=== PATIENT | male | born 2000 | race African-American/Black ===

== ENCOUNTER 2018-12-30 22:35 | Emergency (ER) | payer OTHER ==
[2018-12-30 22:42] VITALS: TEMP 98.6
--- NOTE | 2018-12-30 23:21 | XR ---
EXAM: XR Right Foot Complete, 3 or More Views CLINICAL HISTORY: Pain TECHNIQUE: Frontal, lateral and oblique views of the right foot. COMPARISON: No relevant prior studies available. FINDINGS: Bones/joints: Indeterminate tiny linear calcific density along the dorsal aspect of the talar neck. A fracture fragment is not excluded. Soft tissues: Unremarkable. No radiopaque foreign body. IMPRESSION: Indeterminate tiny linear calcific density along the dorsal aspect of the talar neck. A fracture fragment is not excluded. Consider correlation with point tenderness.
--- NOTE | 2018-12-30 23:23 | XR ---
EXAM: XR Right Ankle Complete, 3 or More Views CLINICAL HISTORY: Pain TECHNIQUE: Frontal, lateral and oblique views of the right ankle. COMPARISON: No relevant prior studies available. FINDINGS: Bones/joints: No acute fracture or malalignment. Soft tissues: Unremarkable. IMPRESSION: No acute fracture or malalignment.
--- NOTE | 2018-12-31 00:14 | ED ---
General Adult HPI - General Chief complaint: Extremity Injury, Lower Stated complaint: Rt Ankle Injury Time Seen by Provider: 12/30/18 22:52 Source: patient, family, RN notes reviewed Mode of arrival: ambulatory Limitations: no limitations - History of Present Illness Initial comments: 18-year-old male presents to the emergency department for a chief component of right ankle pain 7 hours. Patient states he was putting basketball when he landed on his right ankle and inverted it. Patient states the pain is over the forefoot and to the lateral aspect of the right ankle. Patient states he cannot ambulate on this or bear weight. States it is very painful to bend his ankle. He denies hitting his head or any other injuries.Patient has no other complaints at this time including shortness of breath, chest pain, abdominal pain, nausea or vomiting, headache, or visual changes. - Related Data Home Medications Medication Instructions Recorded Confirmed No Known Home Medications 06/07/15 12/30/18 Allergies Allergy/AdvReac Type Severity Reaction Status Date / Time No Known Allergies Allergy Verified 12/30/18 22:45 Review of Systems ROS Statement: Those systems with pertinent positive or pertinent negative responses have been documented in the HPI. ROS Other: All systems not noted in ROS Statement are negative. Past Medical History Past Medical History: No Reported History History of Any Multi-Drug Resistant Organisms: None Reported Past Surgical History: No Surgical Hx Reported Past Psychological History: No Psychological Hx Reported Smoking Status: Current every day smoker Past Alcohol Use History: None Reported Past Drug Use History: None Reported General Exam Limitations: no limitations General appearance: alert, in no apparent distress Head exam: Present: atraumatic, normocephalic, normal inspection Eye exam: Present: normal appearance, PERRL, EOMI. Absent: scleral icterus, con junctival injection, periorbital swelling ENT exam: Present: normal exam, mucous membranes moist Neck exam: Present: normal inspection, full ROM. Absent: tenderness, meningismus, lymphadenopathy Respiratory exam: Present: normal lung sounds bilaterally. Absent: respiratory distress, wheezes, rales, rhonchi, stridor Cardiovascular Exam: Present: regular rate, normal rhythm, normal heart sounds. Absent: systolic murmur, diastolic murmur, rubs, gallop, clicks Extremities exam: Present: tenderness (Significant tenderness noted over the navicular of the right foot), normal capillary refill (Capillary refill less than 2 seconds, to be pulse 2+ in the right lower extremity), other (Sensation intact in the right lower extremity, no significant edema or erythema.). Absent: full ROM (Patient is able to flex and extend her ankle but does have some pain with doing so), pedal edema, joint swelling, calf tenderness Neurological exam: Present: alert, oriented X3, CN II-XII intact Psychiatric exam: Present: normal affect, normal mood Course Vital Signs 12/30/18 12/31/18 22:39 00:17 Temperature 98.6 F Pulse Rate 99 92 Respiratory 18 16 Rate Blood Pressure 121/67 120/71 O2 Sat by Pulse 100 96 Oximetry Procedures - Orthopedic Splinting/Casting Injury #1 Side: right Lower Extremity Injury Location: short leg Lower Extremity Immobilizer: posterior splint, stirrup splint Other Orthopedic Equipment: crutches Additional Comments: NV status intact after splint applied Medical Decision Making - Medical Decision Making 18-year-old male presents to the emergency department for chief clinic of right ankle pain. Patient fell onto the right ankle while playing basketball and inverted it. On exam neurovascular status is intact. Patient does have pinpoint tenderness over the navicular. Unable to bear weight. X-ray of the ankle and foot are negative. However given patient's point tenderness and inability to bear weight he was splinted in a posterior and stirrup splint. Given crutches. Discussed following up with orthopedics or possible occult fracture versus soft tissue injury. Discussed returning here if he has any worsening symptoms. Discussed Rice therapy. Disposition Clinical Impression: Foot pain, right Disposition: HOME SELF-CARE Condition: Good Instructions (If sedation given, give patient instructions): R.I.C.E. Treatment (ED), Ankle Strain (ED) Additional Instructions: Please take Motrin and Tylenol for pain. Use crutches. Follow-up with orthopedics in one to 2 days. Return here if you have any worsening symptoms. Is patient prescribed a controlled substance at d/c from ED?: No Referrals: Damaris Ho MD [STAFF PHYSICIAN] - 1-2 days Fernando Tinajero DO [Doctor of Osteopathic Medicine] - 1-2 days Time of Disposition: 00:13
[2018-12-31 00:18] VITALS: BP 120/71; PULSE 92; RESP 16
== END 2018-12-31 00:22 | disposition home or self-care (01) ==
LOC: EC 22:35
DX: M79.671 Pain in right foot (principal); F17.200 Nicotine dependence, unspecified, uncomplicated
CPT/HCPCS: 29515; 99283

== ENCOUNTER 2022-05-22 09:00 | Emergency (ER) | payer OTHER ==
[2022-05-22 09:20] VITALS: RESP 18; TEMP 98
--- NOTE | 2022-05-22 09:50 | XR ---
EXAMINATION TYPE: XR finger RT DATE OF EXAM: 05/22/2022 COMPARISON: NONE HISTORY: Pain TECHNIQUE: Three views are submitted. FINDINGS: There is a fracture line through the base of the middle phalanx fourth digit extending obliquely. Art icular extension not excluded. No significant callus formation mild displacement. IMPRESSION: 1. Obliquely oriented fracture base little phalanx fourth digit. No significant callus formation.
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
[2022-05-22 10:16] VITALS: BP 124/73; PULSE 70
== END 2022-05-22 10:15 | disposition home or self-care (01) ==
LOC: EC 09:00
DX: S62.622A Displaced fracture of middle phalanx of right middle finger, initial encounter for closed fracture (principal); Y04.0XXA Assault by unarmed brawl or fight, initial encounter
CPT/HCPCS: 99284

== ENCOUNTER → 2022-11-10 | Outpatient (CLI) | payer OTHER ==
--- NOTE | 2022-11-10 11:53 | XR ---
EXAMINATION TYPE: XR shoulder limited RT DATE OF EXAM: 11/10/2022 CLINICAL HISTORY: pain TECHNIQUE: Three views of the right shoulder are obtained. COMPARISON: None FINDINGS: There is no acute fracture/dislocation evident. The acromioclavicular and glenohumeral abelino int spaces appear within normal limits. The visualized ribs are intact and unremarkable. IMPRESSION: 1. There is no acute fracture or dislocation. ICD 10 NO FRACTURE, INITIAL EVALUATION
== END | disposition home or self-care (01) ==
LOC: RADXRMAIN 10:49
PROVIDERS: ATTEND Family Medicine
DX: M25.511 Pain in right shoulder (principal)

== ENCOUNTER 2023-08-16 13:21 | Emergency (ER) | payer OTHER ==
--- NOTE | 2023-08-16 15:59 | ED ---
General Adult HPI <Forrest Booth - Last Filed: 08/16/23 15:59> - General Source: patient, RN notes reviewed <Lila Conrad - Last Filed: 08/16/23 17:33> - General Stated complaint: face laceration Time Seen by Provider: 08/16/23 15:59 - History of Present Illness Initial comments: 23-year-old male presenting to the ED with the chief complaints of head injury. Patient states that he was playing basketball. States during this an opposing player head butted him on accident while defending. There is no LOC at this time. Now notes a laceration to his forehead. No other injuries at this time. Tetanus status unknown. (Forrest Booth) Patient is a 23-year-old male presenting the emergency department with a chief complaint face laceration. Patient states he was playing basketball and an opponent turned hitting his head into the patient's. Patient denies loss of consciousness, blood thinner use, nausea vomiting, visual disturbances. Patient does report that he has a mild headache. Patient is unaware of tetanus vaccination status. Patient denies any other injuries or complaints at this time. (Lila Conrad) - Related Data Home Medications Medication Instructions Recorded Confirmed No Known Home Medications 06/07/15 12/30/18 Allergies Allergy/AdvReac Type Severity Reaction Status Date / Time No Known Allergies Allergy Verified 08/16/23 16:08 Review of Systems ROS Other: All systems not noted in ROS Statement are negative. <Forrest Booth - Last Filed: 08/16/23 15:59> ROS Other: All systems not noted in ROS Statement are negative. <Lila Conrad - Last Filed: 08/16/23 17:33> ROS Statement: Those systems with pertinent positive or pertinent negative responses have been documented in the HPI. Past Medical History Past Medical History: No Reported History History of Any Multi-Drug Resistant Organisms: None Reported Past Surgical History: No Surgical Hx Reported Past Psychological History: No Psychological Hx Reported Past Alcohol Use History: Occasional Past Drug Use History: Marijuana <Forrest Booth - Last Filed: 08/16/23 15:59> General Exam <Forrest Booth - Last Filed: 08/16/23 15:59> General appearance: alert, in no apparent distress Head exam: Present: atraumatic, normocephalic, normal inspection Eye exam: Present: normal appearance, PERRL, EOMI. Absent: scleral icterus, conjunctival injection, periorbital swelling Pupils: Present: normal accommodation Respiratory exam: Present: normal lung sounds bilaterally. Absent: respiratory distress, wheezes, rales, rhonchi, stridor Cardiovascular Exam: Present: regular rate, normal rhythm, normal heart sounds. Absent: systolic murmur, diastolic murmur, rubs, gallop, clicks Neurological exam: Present: alert, oriented X3, CN II-XII intact Psychiatric exam: Present: normal affect, normal mood Skin exam: Present: warm, dry, normal color, other (3 cm laceration to medial left eyebrow. no active bleeding ). Absent: rash <Lila Conrad - Last Filed: 08/16/23 17:33> - General Exam Comments Initial Comments: Visual Physical Exam Vital signs reviewed General: Well-appearing, nontoxic, no acute distress. Head: Laceration to patient's forehead Eyes: PERRLA, EOMI ENT: Airway patent Chest: Nonlabored breathing Skin: No visual rash, normal skin tone Neuro: Alert and oriented 3 Musculoskeletal: No gross abnormalities (Forrest Booth) Course Vital Signs 08/16/23 16:04 Temperature 97.9 F Pulse Rate 64 Respiratory 18 Rate Blood Pressure 127/77 O2 Sat by Pulse 100 Oximetry Procedures - Laceration Laceration #1 Consent Obtained: verbal consent Site: face Size (cm): 3 Description: linear Depth: simple, single layer Anesthetic Used: lidocaine 1% Anesthesia Technique: local infiltration Amount (mls): 4 Pre-repair: wound explored, irrigated extensively, deep structures intact Type of Sutures: nylon Size of Sutures: 5-0 Number of Sutures: 4 Technique: simple, interrupted Patient Tolerated Procedure: well, no complications <Lila Conrad - Last Filed: 08/16/23 17:33> Medical Decision Making <Forrest Booth - Last Filed: 08/16/23 15:59> <Lila Conrad - Last Filed: 08/16/23 17:33> - Medical Decision Making Quicknote portion performed. Signed Forrest Cabatu Forrest De Dios) Was pt. sent in by a medical professional or institution (TOBIAS Mullins, OFFLINE EDITOR, urgent care, hospital, or longterm...) When possible be specific @ -No Did you speak to anyone other than the patient for history (EMS, parent, family, police, friend...)? What history was obtained from this source @ -No Did you review nursing and triage notes (agree or disagree)? Why? @ -I reviewed and agree with nursing and triage notes Were old charts reviewed (outside hosp., previous admission, EMS record, old EKG, old radiological studies, urgent care reports/EKG's, longterm records)? Report findings @ -No old charts were reviewed Differential Diagnosis (chest pain, altered mental status, abdominal pain women, abdominal pain men, vaginal bleeding, weakness, fever, dyspnea, syncope, headache, dizziness, GI bleed, back pain, seizure, CVA, palpatations, mental health, musculoskeletal)? @ -Laceration, abrasion, contusion EKG interpreted by me (3pts min.). @ -None X-rays interpreted by me (1pt min.). @ -None done CT interpreted by me (1pt min.). @ -None done U/S interpreted by me (1pt. min.). @ -None done What testing was considered but not performed or refused? (CT, X-rays, U/S, labs)? Why? @ -CT brain was considered but not done according to [facility] CT head protocol. What meds were considered but not given or refused? Why? @ -None Did you discuss the management of the patient with other professionals (professionals i.e. TOBIAS Mullins, OFFLINE EDITOR, lab, RT, psych nurse, social worker aide, claims processor, teacher, college service officer, mattress spring encaser)? Give summary @ -No Was smoking cessation discussed for >3mins.? @ -No Was critical care preformed (if so, how long)? @ -No Were there social determinants of health that impacted care today? How? (Homelessness, low income, unemployed, alcoholism, drug addiction, transportation, low edu. Level, literacy, decrease access to med. care, residential, rehab)? @ -No Was there de-escalation of care discussed even if they declined (Discuss DNR or withdrawal of care, Hospice)? DNR status @ -No What co-morbidities impacted this encounter? (DM, HTN, Smoking, COPD, CAD, Cancer, CVA, ARF, Chemo, Hep., AIDS, mental health diagnosis, sleep apnea, morbid obesity)? @ -None Was patient admitted / discharged? Hospital course, mention meds given and route, prescriptions, significant lab abnormalities, going to OR and other pertinent info. @ -Discharge. Patient is a 23-year-old male presented ER with chief complaint face laceration. Upon examination, patient's vital signs are stable. Physical exam was significant for a 3 cm laceration to left medial eyebrow. No active bleeding. Deep structures intact. CT brain was considered but not done due to patient's symptoms and [facility] CT head protocol. Patient received tetanus vaccination. Laceration was closed using 4 simple interrupted sutures. Patient tolerated procedure well. I advised patient to have sutures removed in 5-7 days and to keep area clean and dry. I discussed return parameters and signs of infection patient should monitor for. Patient will be discharged in stable condition with follow-up to PCP. Patient expressed understanding and agreement with care plan.] Undiagnosed new problem with uncertain prognosis? @ -No Drug Therapy requiring intensive monitoring for toxicity (Heparin, Nitro, Insulin, Cardizem)? @ -No Were any procedures done? @ -Yes Diagnosis/symptom? @ -Laceration Acute, or Chronic, or Acute on Chronic? @ -Acute Uncomplicated (without systemic symptoms) or Complicated (systemic symptoms)? @ -[Uncomplicated Side effects of treatment? @ -No Exacerbation, Progression, or Severe Exacerbation? @ -No Poses a threat to life or bodily function? How? (Chest pain, [place], [place], pneumonia, PE, COPD, DKA, ARF, appy, cholecystitis, CVA, Diverticulitis, Homicidal, Suicidal, threat to staff... and all critical care pts) @ -No (Lila Conrad) Disposition <Forrest Booth - Last Filed: 08/16/23 15:59> Is patient prescribed a controlled substance at d/c from ED?: No Time of Disposition: 17:26 <Lila Conrad - Last Filed: 08/16/23 17:33> Clinical Impression: Laceration Disposition: HOME SELF-CARE Condition: Stable Additional Instructions: Please have sutures removed in 5-7 days. Please keep area clean and dry and monitor for signs of infection. Please return to the ER with any new symptoms or concerns. Referrals: Gen Thomson MD [Primary Care Provider] - 1-2 days
[2023-08-16 16:13] VITALS: RESP 18
[2023-08-16] MEDS ORDERED: LIDOCAINE 1% INJ 10MG/ML (20 ML MDV) SQ ONE (16:15)
[2023-08-16] MEDS ORDERED: DIPH,PERTUS(ACELL)TETVAC-LF 0.5 ML VIAL IM ONE (16:15)
[2023-08-16 18:04] VITALS: BP 125/84; PULSE 65; TEMP 98.2
== END 2023-08-16 17:48 | disposition home or self-care (01) ==
LOC: EC 13:21
DX: S01.112A Laceration without foreign body of left eyelid and periocular area, initial encounter (principal); F12.90 Cannabis use, unspecified, uncomplicated; Z23 Encounter for immunization; W22.8XXA Striking against or struck by other objects, initial encounter; Y93.67 Activity, basketball
CPT/HCPCS: 90715; 12013; 99282; 90471; J2001